=== PATIENT | male | born 1955 | race Caucasian/White ===

== ENCOUNTER 2016-12-09 09:16 | Emergency (ER) | payer BC, OTHER ==
[~2016-12-09] VITALS: Ht 182.9 cm; Wt 87.6 kg
[~2016-12-09 09:16] MED LIST: DIAZ5 PO; NAPR550 PO; Z.0.NO CURRENT MEDS
[2016-12-09 09:20] VITALS: BP 139/92; PULSE 73; RESP 16; TEMP 97.7; O2SAT 98
[2016-12-09 09:30] VITALS: O2SAT 100
[2016-12-09] MEDS ORDERED: RESP: ALBUTEROL 2.5 MG/IPRATROPIUM 0.5 MG NEB (SCH) INH ONE (09:30)
[2016-12-09] MEDS ORDERED: SODIUM CHLORIDE 0.9% FLUSH 10 ML FLUSH IVF PRN (09:30)
--- NOTE | 2016-12-09 09:33 | PD ---
HPI Chief Complaint: Cold / Flu Symptoms Time Seen by Provider: 09:28 Travel History International Travel<30 days: No Contact w/Intl Traveler<30days: No Traveled to known affect area: No History of Present Illness HPI 61-year-old male patient with history of smoking, presents to the ER today because he states that he has had a "chest cold" for the past few days. He feels like his chest is tight, feels like he can't take a deep breath, he states he has had intermittent coughing sometimes at night. He denies any fevers, vomiting, abdominal pains, or any other symptoms. The chest discomfort is described as an aching that is currently a 2 out of 10. Modifying Factors: None Associated Signs & Symptoms: Chest discomfort, coughing intermittently Risk Factors: Smoking PFSH Past Medical History Hx Anticoagulant Therapy: No Diabetes: No Diminished Hearing: No Tetanus Vaccination: Unknown Influenza Vaccination: No Past Surgical History Neurologic Surgery: Yes (neck) Social History Alcohol Use: Yes (1-2 drinks bi-weekly) Tobacco Use: Yes (1 ppd) Substance Use: No Allergies-Medications (Allergen,Severity, Reaction): Coded Allergies: Codeine (Verified Allergy, Severe, 12/09/16) vomiting Reported Meds & Prescriptions Reported Meds & Active Scripts Active Review of Systems Except as stated in HPI: all other systems reviewed are Neg Physical Exam Narrative GENERAL: Well-developed pleasant elderly white male patient currently in no acute distress. Awake and oriented 3. SKIN: Focused skin assessment warm/dry. HEAD: Atraumatic. Normocephalic. EYES: Pupils equal and round. No scleral icterus. No injection or drainage. ENT: No nasal bleeding or discharge. Mucous membranes pink and moist. NECK: Trachea midline. No JVD. CARDIOVASCULAR: Regular rate and rhythm. No murmur appreciated. RESPIRATORY: No accessory muscle use. Clear to auscultation. Breath sounds equal bilaterally. No crackles, wheezing, or rhonchi appreciated. GASTROINTESTINAL: Abdomen soft, non-tender, nondistended. Hepatic and splenic margins not palpable. MUSCULOSKELETAL: No obvious deformities. No clubbing. No cyanosis. No edema. NEUROLOGICAL: Awake and alert. No obvious cranial nerve deficits. Motor grossly within normal limits. Normal speech. PSYCHIATRIC: Appropriate mood and affect; insight and judgment normal. Data Data Last Documented VS Vital Signs Date Time Temp Pulse Resp B/P Pulse Ox O2 Delivery O2 Flow Rate FiO2 12/09/16 09:49 80 16 139/92 100 Room Air 137/87 12/09/16 09:20 97.7 Orders Electrocardiogram (12/09/16:28) Ckmb (Isoenzyme) Profile (12/09/16:28) Complete Blood Count With Diff (12/09/16:28) Comprehensive Metabolic Panel (12/09/16:) D-Dimer (12/09/16) Magnesium (Mg) (12/09/16:28) Prothrombin Time / Inr (Pt) (12/09/16:28) Act Partial Throm Time (Ptt) (12/09/16:) Troponin I (12/09/16:) Chest, Single Ap (12/09/16:28) Ecg Monitoring (12/09/16:28) Bilateral Bp Monitoring (12/09/16:) Iv Access Insert/Monitor (12/09/16:) Oximetry (12/09/16:) Oxygen Administration (12/09/16:28) Sodium Chloride 0.9% Flush (Ns Flush) (12/09/16 09:30) Albuterol-Ipratropium Neb (Duoneb Neb) (12/09/16:30) CKMB (12/09/16 09:35) CKMB% (12/09/16 09:35) Labs Laboratory Tests Test 12/09/16 09:35 White Blood Count 9.6 TH/MM3 Red Blood Count 4.27 MIL/MM3 Hemoglobin 13.3 GM/DL Hematocrit 38.3 % Mean Corpuscular Volume 89.5 FL Mean Corpuscular Hemoglobin 31.1 PG Mean Corpuscular Hemoglobin 34.8 % Concent Red Cell Distribution Width 12.4 % Platelet Count 344 TH/MM3 Mean Platelet Volume 7.2 FL Neutrophils (%) (Auto) 77.0 % Lymphocytes (%) (Auto) 14.4 % Monocytes (%) (Auto) 6.7 % Eosinophils (%) (Auto) 1.3 % Basophils (%) (Auto) 0.6 % Neutrophils # (Auto) 7.4 TH/MM3 Lymphocytes # (Auto) 1.4 TH/MM3 Monocytes # (Auto) 0.6 TH/MM3 Eosinophils # (Auto) 0.1 TH/MM3 Basophils # (Auto) 0.1 TH/MM3 CBC Comment DIFF FINAL Differential Comment Prothrombin Time 10.1 SEC Prothromb Time International 0.9 RATIO Ratio Activated Partial 29.3 SEC Thromboplast Time D-Dimer Quantitative (PE/DVT) 0.41 MG/L FEU Sodium Level 142 MEQ/L Potassium Level 4.4 MEQ/L Chloride Level 106 MEQ/L Carbon Dioxide Level 28.3 MEQ/L Anion Gap 8 MEQ/L Blood Urea Nitrogen 12 MG/DL Creatinine 0.94 MG/DL Estimat Glomerular Filtration 82 ML/MIN Rate Random Glucose 79 MG/DL Calcium Level 8.7 MG/DL Magnesium Level 2.2 MG/DL Total Bilirubin 0.3 MG/DL Aspartate Amino Transf 17 U/L (AST/SGOT) Alanine Aminotransferase 21 U/L (ALT/SGPT) Alkaline Phosphatase 86 U/L Total Creatine Kinase 111 U/L Creatine Kinase MB 1.3 NG/ML Troponin I LESS THAN 0.02 NG/ML Total Protein 6.9 GM/DL Albumin 3.4 GM/DL MDM Medical Decision Making Medical Screen Exam Complete: Yes Emergency Medical Condition: Yes Medical Record Reviewed: Yes Interpretation(s) EKG shows NSR, no ST elevation or depression, and no arrhythmias. No significant T-wave inversions. Laboratory Tests Test 12/09/16 09:35 Red Blood Count 4.27 MIL/MM3 (4.50-5.90) Hematocrit 38.3 % (39.0-51.0) Neutrophils (%) (Auto) 77.0 % (16.0-70.0) Estimat Glomerular Filtration 82 ML/MIN (>89) Rate Troponin I LESS THAN 0.02 NG/ML (0.02-0.05) Last 24 hours Impressions Chest X-Ray 12/09/16927 Signed Impressions: Service Date/Time: Friday, December 09, 2016 09:47 - CONCLUSION: No acute disease. Bakari Borrego MD FACR Differential Diagnosis Chest discomfort, coughingbronchitis versus pneumonia versus ACS Narrative Course Chest x-ray did not show any signs of acute processes. EKG did not show any signs of acute ST-T changes. Lab work and cardiac enzymes are unremarkable. He was given a nebulizer treatment the ER with improvement symptoms. Symptoms are more suggestive of a bronchitis. Cardiac issues cannot be rule out this case however and I have discussed this with the patient as well. I have offered to admit the patient to the hospital for further cardiac evaluation versus follow-up for outpatient evaluation. He states that he feels better and would prefer to follow-up. At this point, my plan would be to release the patient to follow-up to primary care physician. Return for any worsening in symptoms as needed. The plan has been discussed with him and he states understanding. Diagnosis Primary Impression: Atypical chest pain Additional Impression: Bronchitis Med/Other Pt SpecificInfo: Prescription(s) given Scripts Albuterol 6.7 GM Inh (Proventil Hfa 6.7 GM Inh)90 Mcg/Act Aer2 Puff INH Q4-6H PRN (SHORTNESS OF BREATH) #1 INHALER Ref 0 Prov:Sole Bernal MD 12/09/16 Prednisone 50 Mg Tab50 Mg PO DAILY #5 TAB Ref 0 Prov:Sole Bernal MD 12/09/16 Azithromycin (Zithromax Z-Rocael)250 Mg Gyef236 Mg PO DIRECTED #1 DSPK Ref 0 500 MG (2 tabs) day 1, then 1 tab days 2-5. Prov:Sole Benral MD 12/09/16 Disposition: 01 DISCHARGE HOME Condition: Stable Sole Bernal MD Dec 09, 2016 09:33
[2016-12-09 09:46] LABS: AUTOMATED NEUTROPHIL # 7.4 TH/MM3 (1.8-7.7); BASOPHIL # 0.1 TH/MM3 (0-0.2); BASOPHIL % 0.6 % (0.0-2.0); EOSINOPHIL # 0.1 TH/MM3 (0-0.4); EOSINOPHIL % 1.3 % (0.0-4.0); HEMATOCRIT 38.3 % (39.0-51.0); LYMPH % 14.4 % (9.0-44.0); LYMPHOCYTE # 1.4 TH/MM3 (1.0-4.8); MEAN CELL VOLUME 89.5 FL (80.0-100.0); MEAN CORPUSCULAR HEMOGLOBIN 31.1 PG (27.0-34.0); MEAN CORPUSCULAR HGB CONC 34.8 % (32.0-36.0); MONO % 6.7 % (0.0-8.0); PLATELET COUNT 344 TH/MM3 (150-450); RED BLOOD COUNT 4.27 MIL/MM3 (4.50-5.90); RED CELL DISTRIBUTION WIDTH 12.4 % (11.6-17.2); WHITE BLOOD COUNT 9.6 TH/MM3 (4.0-11.0)
[2016-12-09 09:49] VITALS: BP_SYST 137; BP_SYST 139; BP_DIAS 87; BP_DIAS 92; PULSE 80; RESP 16; O2SAT 100
[2016-12-09 09:54] LABS: HEMO FLAGS DIFF FINAL
[2016-12-09 10:08] LABS: APTT (PATIENT) 29.3 SEC (24.3-30.1); INTERNATIONAL NORMALIZED RATIO 0.9 RATIO; PROTHROMBIN TIME - PATIENT 10.1 SEC (9.8-11.6)
[2016-12-09 10:15] LABS: ANION GAP 8 MEQ/L (5-15); BICARBONATE 28.3 MEQ/L (21.0-32.0); BLOOD UREA NITROGEN 12 MG/DL (7-18); CHLORIDE 106 MEQ/L (98-107); POTASSIUM 4.4 MEQ/L (3.5-5.1); SODIUM (NA) 142 MEQ/L (136-145)
[2016-12-09 10:17] LABS: MAGNESIUM 2.2 MG/DL (1.5-2.5)
[2016-12-09 10:18] LABS: ALT (GPT) 21 U/L (12-78); AST (GOT) 17 U/L (15-37); GLOMERULAR FILTRATION RATE 82 ML/MIN (>89)
[2016-12-09 10:20] LABS: TOTAL BILIRUBIN ADULT 0.3 MG/DL (0.2-1.0)
[2016-12-09 10:21] LABS: ALKALINE PHOSPHATASE 86 U/L (45-117); CREATINE KINASE 111 U/L (39-308)
--- NOTE | 2016-12-09 10:21 | RADHPO ---
EXAM DATE/TIME: 12/09/2016 09:47 [facility] COMPARISON: No previous studies available for comparison. INDICATIONS : Short of breath, cough, chest pain with cough MEDICAL HISTORY : None. SURGICAL HISTORY : None. ENCOUNTER: Initial ACUITY: 2 days PAIN SCORE: 5/10 LOCATION: Bilateral chest FINDINGS: A single view of the chest demonstrates the lungs to be symmetrically aerated without evidence of mas s, infiltrate or effusion. The cardiomediastinal contours are unremarkable. Osseous structures are intact. CONCLUSION: No acute disease. Bakari Borrego MD FACR on December 09, 2016 at 10:19 Board Certified Radiologist. This report was verified electronically.
[2016-12-09 10:33] LABS: CKMB 1.3 NG/ML (0.5-3.6)
[2016-12-09] MEDS ORDERED: PRED50 PO (10:45)
[2016-12-09] MEDS ORDERED: ALBU6.7H INH (10:45)
[2016-12-09] MEDS ORDERED: ZITHTAB PO (10:45)
--- NOTE | 2016-12-10 09:48 | EKG ---
Date Performed: 12/09/2016 Time Performed: 09:29:58 PTAGE: 61 years EKG: Sinus rhythm Possible anteroseptal infarct - age undetermined Abnormal ECG NO PREVIOUS TRACING DOCTOR: Chip Garcia Interpretating Date/Time 12/10/2016 09:39:28
== END 2016-12-09 10:57 | disposition home or self-care (01) ==
LOC: PHEFT 09:16
DX: R07.89 Other chest pain (principal); J40 Bronchitis, not specified as acute or chronic; R94.31 Abnormal electrocardiogram [ECG] [EKG]; F17.200 Nicotine dependence, unspecified, uncomplicated
CPT/HCPCS: 71010; 80053; 82550; 82552; 83735; 84484; 85025; 85379; 85610; 85730; 93005; 94664; 99285